=== PATIENT | female | born 1970 | race Caucasian/White ===

== ENCOUNTER 2021-12-14 19:59 | Observation (INO) ==
[2021-12-15] MEDS ORDERED: Morphine Sulfate 2 MG/ML SYRINGE IVP PRN (00:36)
[2021-12-15] MEDS ORDERED: Iopamidol - 370 500 ML MLS IVP ONE (00:37)
[2021-12-15 01:39] LABS: Basophils % 0.7 %; Eosinophils # 0.1 K/mcL (0.0-0.6); Eosinophils % 1.3 %; Hematocrit 35.2 % (35.3-44.9); Hemoglobin 11.3 g/dL (11.5-15.4); Immature Granulocytes % 0.2 % (0-4); Lymphocytes # 1.5 K/mcL (0.6-4.6); Lymphocytes % 33.7 %; Mean Corpuscular HGB Conc 32.1 g/dL (31.6-35.5); Mean Corpuscular Hemoglobin 28.8 pg (28.0-33.3); Mean Corpuscular Volume 89.8 fL (83.0-100.0); Mean Platelet Volume 8.8 fL (9.4-12.4); Monocytes # 0.5 K/mcL (0.0-1.3); Neutrophils # 2.4 K/mcL (1.6-8.9); Platelet Count 186 K/mcL (140-400); Red Blood Count 3.92 M/mcL (3.82-4.97); Red Cell Distribution Width 13.4 % (11.5-14.5); Segmented Neutrophils % 53.1 %; White Blood Count 4.5 K/mcL (4.3-11.1)
[2021-12-15 01:49] LABS: Activated Partial Thrombo Time 72.7 Seconds (26.0-36.0)
[2021-12-15 01:55] LABS: INR 3.8; Prothrombin Time 41.8 Seconds (9.4-12.1)
[2021-12-15 01:58] LABS: Potassium 3.9 mEq/L (3.5-5.1)
[2021-12-15 01:59] LABS: Albumin 4.3 g/dL (3.5-5.7); Albumin/Globulin Ratio 1.7 (1.1-2.2); Bilirubin,Total 0.3 mg/dL (0.3-1.0); Calcium 9.4 mg/dL (8.6-10.3); Globulin 2.5 g/dL (2.4-3.5); Total Protein 6.8 g/dL (6.4-8.9)
[2021-12-15] MEDS ORDERED: Famotidine 20 MG/2 ML VIAL IVP ONE (03:33)
[2021-12-15] MEDS ORDERED: Ondansetron 4 MG/2 ML VIAL IVP ONE (04:04)
[2021-12-15] MEDS ORDERED: Vancomycin 1,500 MG/265 ML IV.SOLN IVPB ONE (04:28)
[2021-12-15] MEDS ORDERED: Ondansetron 4 MG/2 ML VIAL IVP PRN (05:18)
[2021-12-15] MEDS ORDERED: Naloxone 0.4 MG/ML INJ IVP PRN (05:18)
[2021-12-15] MEDS ORDERED: Acetaminophen 325 MG TABLET PO PRN (06:00)
[2021-12-15] MEDS: Clindamycin 600 MG/50 ML 600 MG/50 ML IV.SOLN IVPB SCH ×2 (08:08→17:21)
[2021-12-15] MEDS ORDERED: *HR* HYDROcodone/Acet 5/325 mg TABLET PO ONE (12:22)
[2021-12-16] MEDS: Clindamycin 600 MG/50 ML 600 MG/50 ML IV.SOLN IVPB SCH ×2 (00:55→08:25)
[2021-12-16 04:08] LABS: Basophils % 0.6 %; Eosinophils # 0.1 K/mcL (0.0-0.6); Eosinophils % 1.7 %; Hematocrit 31.7 % (35.3-44.9); Hemoglobin 10.1 g/dL (11.5-15.4); Immature Granulocytes % 0.4 % (0-4); Lymphocytes # 1.3 K/mcL (0.6-4.6); Lymphocytes % 28.8 %; Mean Corpuscular HGB Conc 31.9 g/dL (31.6-35.5); Mean Corpuscular Hemoglobin 28.9 pg (28.0-33.3); Mean Corpuscular Volume 90.8 fL (83.0-100.0); Mean Platelet Volume 9.1 fL (9.4-12.4); Monocytes # 0.5 K/mcL (0.0-1.3); Monocytes % 10.5 %; Neutrophils # 2.7 K/mcL (1.6-8.9); Platelet Count 193 K/mcL (140-400); Red Blood Count 3.49 M/mcL (3.82-4.97); Red Cell Distribution Width 13.4 % (11.5-14.5); White Blood Count 4.7 K/mcL (4.3-11.1)
[2021-12-16 04:16] LABS: INR 2.6
[2021-12-16 04:37] LABS: Albumin 3.8 g/dL (3.5-5.7); Albumin/Globulin Ratio 1.6 (1.1-2.2); Bilirubin,Total 0.3 mg/dL (0.3-1.0); Calcium 9.1 mg/dL (8.6-10.3); Globulin 2.4 g/dL (2.4-3.5); Magnesium 1.8 mg/dL (1.6-2.6); Total Protein 6.2 g/dL (6.4-8.9)
[2021-12-16 07:19] VITALS: BP 129/85; PULSE 81; TEMP 98.2; O2SAT 99
== END 2021-12-16 12:00 | disposition home or self-care (01) ==
LOC: 3BNU 19:59 → EMEROOARM 19:59 → SUATTDRO 12-15 05:07 → 3BNU 12-15 05:52
PROVIDERS: ADMIT Internal Medicine; ATTEND Registered Nurse

== ENCOUNTER 2021-12-21 13:00 | Observation (INO) ==
[2021-12-21] MEDS ORDERED: *HR* Heparin 5,000 UNIT/ML VIAL IVP ONE (14:50)
[2021-12-21] MEDS ORDERED: 0.9 % Sodium Chloride 1,000 ML IVC SCH (15:00)
[2021-12-21] MEDS ORDERED: *HR* Heparin 5,000 UNIT/ML VIAL IVP PRN ×2 (16:52)
[2021-12-21] MEDS ORDERED: Heparin 25,000UNIT/250ML 1/2NS 25,000 UNIT/250 ML IV.SOLN IVC SCH (17:00)
[2021-12-22] MEDS ORDERED: ceFAZolin 2,000 MG in Water for inj. (sterile) 20 ML IVP ONE (12:52)
[2021-12-22] MEDS ORDERED: Ipratropium Neb 0.5 MG NEBULIZER IH PRN (13:52)
[2021-12-22] MEDS ORDERED: Ondansetron 4 MG/2 ML VIAL IVP PRN ×2 (13:52→15:08)
[2021-12-22] MEDS ORDERED: Albuterol 2.5 MG/3 ML NEBULIZER IH PRN (13:52)
[2021-12-22] MEDS ORDERED: *HR* OxyCODONE Immed Rel 5 MG TABLET PO PRN (13:52)
[2021-12-22] MEDS ORDERED: *HR* Labetalol 20 MG/4 ML SYRINGE IVP PRN (13:52)
[2021-12-22] MEDS ORDERED: *HR* HYDROmorphone PF 0.5 MG/0.5 ML SYRINGE IVP PRN (13:52)
[2021-12-22] MEDS ORDERED: Acetaminophen IV 1,000 MG/100 ML BAG IVPB PRN (13:52)
[2021-12-22] MEDS ORDERED: Ketorolac 30 MG/ML VIAL IVP PRN (13:52)
[2021-12-22] MEDS ORDERED: *HR* Labetalol 20 MG/4 ML SYRINGE IVP ONE (13:56)
[2021-12-22] MEDS ORDERED: *HR* FentaNYL (PF) 100 MCG/2 ML VIAL ONE (13:57)
[2021-12-22] MEDS: *HR* FentaNYL (PF) 100 MCG/2 ML VIAL IVP PRN ×2 (13:59→14:14)
[2021-12-22] MEDS ORDERED: Morphine Sulfate Oral CONC 10 MG/0.5 ML ORAL.SYG SL PRN (15:08)
[2021-12-22] MEDS ORDERED: 0.9 % Sodium Chloride 1,000 ML IVC SCH (15:08)
[2021-12-22] MEDS: Heparin 25,000UNIT/250ML 1/2NS 25,000 UNIT/250 ML IV.SOLN IVC SCH (18:00)
[2021-12-22] MEDS ORDERED: Heparin 25,000UNIT/250ML 1/2NS 25,000 UNIT/250 ML IV.SOLN IVC SCH (18:00)
[2021-12-22] MEDS: ceFAZolin 1,000 MG in Water for inj. (sterile) 10 ML IVP SCH (19:35)
[2021-12-22] MEDS: *HR* OxyCODONE/APAP 5/325 TABLET PO PRN (19:36)
[2021-12-23] MEDS: Heparin 25,000UNIT/250ML 1/2NS 25,000 UNIT/250 ML IV.SOLN IVC SCH (02:14)
[2021-12-23] MEDS: ceFAZolin 1,000 MG in Water for inj. (sterile) 10 ML IVP SCH (04:53)
[2021-12-23] MEDS: *HR* OxyCODONE/APAP 5/325 TABLET PO PRN (05:35)
[2021-12-23] MEDS ORDERED: *HR* Enoxaparin 100 MG/ML SYRINGE SQ ONE (09:15)
[2021-12-23 10:55] VITALS: BP 123/83; PULSE 72; TEMP 97.3; O2SAT 97
== END 2021-12-23 13:00 | disposition home or self-care (01) ==
LOC: 3ANU
PROVIDERS: ADMIT Surgery; ATTEND Surgery